=== PATIENT | female | born 1955 | race Caucasian/White ===

== ENCOUNTER 2018-02-06 18:33 | Emergency (ER) | payer BC ==
[2018-02-06] MEDS ORDERED: Promethazine HCl 25 MG/ML VIAL ONE (19:01)
[2018-02-06 19:19] LABS: Band 13 % (5-11); Lymphocytes 4 % (21-51); MDiff Complete? YES; Mean Corpuscular HGB CONC 34.1 g/dL (32.0-36.0); Mean Corpuscular Hemoglobin 29.8 pg (27.0-31.0); Mean Corpuscular Volume 87.4 fl (81.0-99.0); Mean Platelet Volume 8.4 fL (7.4-10.4); Monocytes 4 % (0-10); Neutrophil 73 % (42-75); PLT Morphology Comment Appears Adequate; Platelet Count 236 thou/uL (130-400); RBC Distribution Width 11.6 % (11.5-14.5); Reactive Lymphocytes 6 % (0-10); Red Blood Cell (RBC) Count 5.05 mill/uL (4.20-5.40); White Blood Cell (WBC) Count 7.8 thou/uL (4.8-10.8)
[2018-02-06 19:24] LABS: ALT (SGPT) 19 U/L (8-55); AST (SGOT) 21 U/L (5-34); Alkaline Phosphatase 72 U/L (40-150); Anion Gap 14 mmol/L (10-20); BUN (Urea Nitrogen) 14 mg/dL (9.8-20.1); Bilirubin, Total 0.8 mg/dL (0.2-1.2); Calc. Creatinine Clearance 0 mL/min (70-130); Calcium 9.1 mg/dL (7.8-10.44); Carbon Dioxide 22 mmol/L (23-31); Chloride 106 mmol/L (98-107); Estimated GFR-MDRD 62; Globulin 3.5 g/dL (2.4-3.5); Glucose 125 mg/dL (80-115); Potassium 3.9 mmol/L (3.5-5.1); Protein, Total 7.5 g/dL (6.0-8.3); Sodium 138 mmol/L (136-145)
[2018-02-06 19:28] LABS: CKMB 0.6 ng/mL (0-6.6); Troponin I Less than 0.010 ng/mL (< 0.028)
== END 2018-02-06 20:21 | disposition home or self-care (01) ==
LOC: SCSER 18:33
DX: R11.2 Nausea with vomiting, unspecified (principal); K21.9 Gastro-esophageal reflux disease without esophagitis; Z79.899 Other long term (current) drug therapy
CPT/HCPCS: 80053; 82553; 84484; 85025; 93005; 96365; J2550

== ENCOUNTER 2018-06-30 11:07 | Outpatient (CLI) | payer BC ==
--- NOTE | 2018-07-09 12:08 | MMO ---
BILATERAL SCREENING MAMMOGRAMS: Date: 06-30-18 This study is interpreted with the assistance of computer aided detection. Comparison: 03-12-17, 01-17-16, 12-17-14 FINDINGS: Scattered fibroglandular densities are seen in each breast. Vascular calcifications are seen bilatera lly. A few additional benign appearing calcifications are seen in each breast. There are scattered ti ny nodular densities seen within each breast of varying size and shape. Given multiplicity in bilater al findings, these nodules likely represent benign findings. No new dominant mass or suspicious group ing of microcalcifications are seen in either breast. IMPRESSION: BIRADS category 2 - benign findings. Routine annual mammographic screening is recommended. POS: TERESITA
== END 2018-06-30 11:08 | disposition home or self-care (01) ==
LOC: SCSMAMMO 11:07
PROVIDERS: ATTEND Family Medicine
DX: Z12.31 Encounter for screening mammogram for malignant neoplasm of breast (principal)
CPT/HCPCS: 77067

== ENCOUNTER 2019-09-07 11:14 | Outpatient (CLI) | payer BC ==
--- NOTE | 2019-09-07 13:43 | ULT ---
THYROID ULTRASOUND: Date: 09/07/2019 HISTORY: Thyroid nodule. FINDINGS: Real-time imaging of the right and left lobes of the gland were performed. The gland is diffusely het erogeneous. Right lobe measures 1.4 x 1.5 x 4.4 cm. Left lobe measures 1.0 x 1.1 x 3.7 cm. It is diff icult to define discrete nodules, although there are a couple areas of nodularity which are mildly hy perechoic which are in the 1.0 cm or less range. IMPRESSION: Diffusely heterogeneous gland with small bilateral thyroid nodules. Follow-up ultrasound in 1 year wo uld be recommended. POS: CARMINA
== END 2019-09-07 11:15 | disposition home or self-care (01) ==
LOC: SCSULT 11:14
PROVIDERS: ATTEND Family Medicine
DX: E04.2 Nontoxic multinodular goiter (principal)
CPT/HCPCS: 76536

== ENCOUNTER 2019-10-14 08:07 | Outpatient (CLI) | payer BC ==
--- NOTE | 2019-10-14 17:28 | CT ---
CT OF THE ABDOMEN AND PELVIS WITH AND WITHOUT IV CONTRAST INDICATION: UTI and hematuria TECHNIQUE: Noncontrast CT of the abdomen and pelvis was performed. Postcontrast images were obtained in the nephrographic phase and delayed phase. Axial and coronal reformatted images were constructed from the raw data. COMPARISON: None FINDINGS: ABDOMEN: Lung bases: There is a small sub-4 mm pulmonary nodule within the posterior right lower lobe on image 2 of series 3. Additional smaller sub-4 mm pulmonary nodule is seen within the left lower lobe on image 5 of series 2. Liver: No focal lesion. Gallbladder: Normal appearing. Pancreas: Normal. Adrenal glands: Normal. Spleen: Normal. Kidneys and ureters: Normal. No hydronephrosis. Vasculature: There are mild vascular calcifications seen involving the visualized vasculature. Lymph nodes:No lymphadenopathy. Free fluid in abdomen:No free fluid is evident. PELVIS: Small and large bowel: Colonic diverticulosis without evidence of active diverticulitis. Small bowel is of normal caliber. Appendix:Not seen Bladder: There is mild wall thickening with mild perivesicular fat stranding. No intraluminal mass is grossly evident. Rectal and perirectal soft tissues:Normal. Reproductive structures: Uterus and left adnexa are not visualized and presumed to be surgically abse nt. There is a bilobed cystic abnormality involving the right ovary measuring 5.5 x 4.4 x 6.3 cm. The lesion does contain some internal thin septations. Free fluid in pelvis: No free fluid is evident. Lymphadenopathy pelvis: No lymphadenopathy is evident. Osseous structures: No acute osseous abnormality. No destructive osteolytic or osteoblastic lesion i s identified. There is scattered degenerative and osteoarthritic changes. Soft tissues:Normal. IMPRESSION: 1. Complex cystic abnormality involving the right adnexa. Further evaluation with MR the pelvis with and without contrast is recommended for further characterization. Findings may reflect a cystadenoma or cystadenocarcinoma. 2. No focal renal lesion or gross urothelial lesion identified. No renal or ureteral calculus identif ied. No gross bladder lesion identified. There is mild suggested wall thickening and gallbladder with perivesicular fat stranding suspicious for cystitis.
== END 2019-10-14 08:08 | disposition home or self-care (01) ==
LOC: SCSCT 08:07
PROVIDERS: ATTEND Urology
DX: N32.89 Other specified disorders of bladder (principal); N39.41 Urge incontinence; N83.291 Other ovarian cyst, right side; Z87.440 Personal history of urinary (tract) infections; Z87.448 Personal history of other diseases of urinary system
CPT/HCPCS: 74178; 82565

== ENCOUNTER 2019-10-14 09:03 | Outpatient (CLI) | payer BC ==
--- NOTE | 2019-10-14 14:01 | CT ---
EXAM: CT right wrist without contrast HISTORY: Subluxation of the right extensor carpi ulnaris tendon; initial encounter TECHNIQUE: Multiple contiguous axial images were obtained and a CT of the right wrist without contras t. Sagittal and coronal reformats were performed. FINDINGS: There is no evidence of fracture or dislocation. No focal soft tissue swelling is seen. No focal mass or fluid collection is seen. The extensor tendons are normal along the dorsal aspect of the wrist. The extensor carpi ulnaris tend on is present within the groove in the distal ulna during this examination. The flexor tendons are intact along the volar aspect of the wrist and in the carpal tunnel. IMPRESSION: No significant abnormality identified.
--- NOTE | 2019-10-14 14:07 | CT ---
EXAM: CT left wrist without contrast HISTORY: Subluxation of the left extensor carpi ulnaris tendon; initial encounter TECHNIQUE: Multiple contiguous axial images were obtained and a CT of the right wrist without contras t. Sagittal and coronal reformats were performed. FINDINGS: There is no evidence of fracture or dislocation. No focal soft tissue swelling is seen. No focal mass or fluid collection is seen. The extensor tendons are normal along the dorsal aspect of the wrist. The extensor carpi ulnaris tend on is present within the groove in the distal ulna during this examination. The flexor tendons are intact along the volar aspect of the wrist and in the carpal tunnel. IMPRESSION: No significant abnormality identified.
== END 2019-10-14 09:04 | disposition home or self-care (01) ==
LOC: SCSCT 09:03
PROVIDERS: ATTEND Orthopaedic Surgery Hand Surgery
DX: S63.091A Other subluxation of right wrist and hand, initial encounter (principal); S63.092A Other subluxation of left wrist and hand, initial encounter

== ENCOUNTER 2020-02-09 07:49 | Day surgery (SDC) | payer BC, OTHER ==
[2020-02-05 12:02] VITALS: BMI 34.0
[2020-02-05 12:59] LABS: Hemoglobin 14.7 g/dL (12.0-16.0); Mean Corpuscular HGB CONC 34.7 g/dL (32.0-36.0); Mean Corpuscular Hemoglobin 31.3 pg (27.0-31.0); Mean Corpuscular Volume 90.2 fL (78.0-98.0); Mean Platelet Volume 8.2 fL (7.4-10.4); Platelet Count 267 thou/uL (130-400); RBC Distribution Width 12.2 % (11.5-14.5); Red Blood Cell (RBC) Count 4.71 mill/uL (4.20-5.40); White Blood Cell (WBC) Count 7.7 thou/uL (4.8-10.8)
[2020-02-05 18:12] LABS: SARS-CoV-2 MS2 Positive; SARS-CoV-2 N Gene Negative; SARS-CoV-2 S Gene Negative; SARS-CoV-2 orf1ab Negative
--- NOTE | 2020-02-09 08:03 | HP ---
HISTORY OF PRESENT ILLNESS: Ms. Anderson is a 64-year-old white female with history of hysterectomy with lap left salpingo-oophorectomy in the past for uterine fibroids. She also reported 3 prior sections. She was referred by Dr. Ford for right adnexal cyst seen on CT scan for workup of hematuria. This scan was performed on October 2019. Report is a bilobed cystic mass 5.5 x 4.4 x 6.3 cm with cystic changes. No solid component seen. Due to this, she was evaluated in my office on 12/07/2019. Transvaginal ultrasound showed her to have a stable cyst of the right adnexal structure measuring . There was no free fluid seen. The CA-125 was performed, which was normal at a value of 6. She is scheduled for laparoscopic RSO removal. PAST MEDICAL HISTORY: Gastroesophageal reflux and overactive bladder. CURRENT MEDICATIONS: 1. Pantoprazole 40 mg tablet daily. 2. Pazeo eyedrops as needed for allergic conjunctivitis. 3. Premarin 0.45 mg tablet daily. 4. Solifenacin 5 mg tablet daily for overactive bladder. PAST SURGICAL HISTORY: As noted, hysterectomy with LSO, cystoscopy of the bladder for bladder polyps, sections x3, and shoulder surgery on the right. FAMILY HISTORY: No history of ovarian cancer or breast cancer. PHYSICAL EXAMINATION: VITAL SIGNS: The patient's height is 5 feet 4 inches, weight 196, blood pressure 140/90, pulse regular at 81, respiratory rate of 18. BMI 33.6. HEENT: Within normal limits. CHEST: Clear to auscultation. HEART: Regular rate and rhythm. S1, S2 heart sounds. No murmurs, rubs, or gallops. ABDOMEN: Soft, nontender, nondistended with no palpable masses. PELVIC: Vulva and vagina had no lesions. Vaginal cuff was intact. She has some fullness in the right adnexal region, nontender. ASSESSMENT: This is a 64-year-old white female with prior hysterectomy, left salpingo-oophorectomy with CT scan and pelvic ultrasound showing a cystic cyst on the right adnexal region. Normal CA-125 and value of 6. Suspect this could be most likely a hydrosalpinx from postsurgical changes from her hysterectomy. PLAN: Plan is to proceed with laparoscopic right salpingo-oophorectomy. Scheduled for 02/09/2020. Risks and benefits of the procedure have been discussed in detail, she is set for surgery. Job ID: [id number]
[2020-02-09] MEDS ORDERED: Gabapentin 300 MG CAP ONE (08:22)
[2020-02-09] MEDS ORDERED: CeleCOXIB 100 MG CAP ONE (08:22)
[2020-02-09] MEDS ORDERED: Famotidine 20 MG TAB ONE (08:22)
[2020-02-09] MEDS ORDERED: Famotidine/PF 20 mg/2ml Vial ONE (08:23)
[2020-02-09] MEDS ORDERED: Midazolam HCl 2 mg/2 ml Vial ONE (08:49)
[2020-02-09] MEDS ORDERED: Dexamethasone 20 MG/5 ML VIAL ONE (09:24)
[2020-02-09] MEDS ORDERED: Ondansetron PF 4 MG/2 ML Vial ONE ×2 (09:24→12:22)
[2020-02-09] MEDS ORDERED: Glycopyrrolate 0.2 MG/ML 5 ML SYRINGE ONE (09:24)
[2020-02-09] MEDS ORDERED: Rocuronium Bromide 10 MG/ML (10ML VIAL) ONE (09:24)
[2020-02-09] MEDS ORDERED: Succinylcholine Chloride 20 MG/ML 10 ml SYRINGE FS ONE (09:24)
[2020-02-09] MEDS ORDERED: Lidocaine 1% PF 5 ML VIAL ONE (09:24)
[2020-02-09] MEDS ORDERED: PROPOFOL 200 MG/20 ML VIAL ONE (09:24)
[2020-02-09] MEDS ORDERED: Fentanyl 100 MCG/2 ML VIAL ONE (09:52)
[2020-02-09] MEDS ORDERED: SUGAMMADEX SODIUM 200 MG/2 ML VIAL ONE (09:52)
[2020-02-09] MEDS ORDERED: Lidocaine 1% w/Epinephrine 1:100K 20 ML VIAL ONE (10:09)
[2020-02-09] MEDS ORDERED: Bupivacaine PF 0.5% 30 ML VIAL ONE (10:09)
--- NOTE | 2020-02-09 14:57 | OP ---
DATE OF PROCEDURE: 02/09/2020 PREOPERATIVE DIAGNOSES: 1. A 64-year-old white female with persistent 5 cm right adnexal cyst. 2. Prior hysterectomy and left salpingo-oophorectomy history. POSTOPERATIVE DIAGNOSES: 1. A 64-year-old white female with persistent 5 cm right adnexal cyst. 2. Prior hysterectomy and left salpingo-oophorectomy history. 3. Right hydrosalpinx of the tube. PROCEDURE PERFORMED: Laparoscopic right salpingo-oophorectomy. NURSING UNIT COORDINATOR SURGEON: Sharri Serrano PA-C. ANESTHESIA: General endotracheal. ESTIMATED BLOOD LOSS: Less than 10 mL. COMPLICATIONS: None. COUNTS: Correct x2. ANTIBIOTICS: 2 g Ancef on-call to OR. PATHOLOGY: Fallopian tube, hydrosalpinx with ovary. FINDINGS: 1. The patient was status post hysterectomy and left salpingo-oophorectomy. 2. She has omental adhesions in mid anterior abdominal wall and left anterior abdominal wall from prior hysterectomy. 3. Right adnexal structure noted tubular hydrosalpinx, some adhesions to the pelvic sidewall status post lysis of adhesion, excision of the tube, and a postmenopausal appearing ovary. DISPOSITION: To recovery room and then plan for discharge home. DESCRIPTION OF PROCEDURE: The patient previously received informed consent in regard to surgery. She was taken back to the operating room, where she received a general endotracheal anesthetic agent without complications. She was then placed in dorsal lithotomy position with Shekhar stirrups and prepped and draped in usual sterile fashion. In-and-out catheterization of the bladder was performed. A moistened sponge stick was placed in the vaginal vault. Attention was then turned to the abdomen, where perspective trocar sites were infiltrated with 0.5% Marcaine with epinephrine. A supraumbilical incision was made vertically approximately 8 mm in size. Veress needle was entered into peritoneal cavity and the patient's pressure was noted to be less than 5 mm. Abdomen was insufflated with the patient's pressure of 15, approximately 4.5 L of carbon dioxide gas. An 8 mm trocar was then placed through the abdominal wall. A 5 mm laparoscope was introduced through the trocar sleeve confirming proper entry. There were adhesions omental in nature in the anterior abdominal wall on the left side of the anterior abdominal wall. No evidence of any entry in the bowel was noted with the supraumbilical trocar. I was able to get around the adhesions to the patient's right anterior abdominal wall, which was free of adhesions, and we were able to locate the left fallopian tube and ovary with the previously mentioned findings. Building Associate port was placed, 5 mm size in the right lower quadrant side and then one just right of the midline in the lower abdomen under direct visualization. I was then able to use the LigaSure device through just slight to the midline port. While my title i instructional assistant grabbed the adnexal cyst with the atraumatic graspers, pulling this away from the pelvic sidewall. I dissected the filmy adhesions and isolated the IP ligament and freed it from the pelvic sidewall. The iliac vessels were just beneath this and the course of the ureter was visualized. It was well away from the operative site. I then transected the IP ligament with the LigaSure device. I continued to dissect the thin filmy adhesions of the hydrosalpinx away from the pelvic sidewall and freed this up along with a small menopausal appearing ovary. Once this was all freed up, the avascular pedicle remained. This was coagulated and transected. We then irrigated the pelvis. Hemostasis was assured. We then put the camera in the right side in the midline, right suprapubic port, and then, a 5 mm bag was brought through the supraumbilical trocar. My title i instructional assistant held onto the specimen and we placed it in the endobag. Specimens removed through the supraumbilical fascial defect with the endobag intact. We then used the GraNee needle closure kit to close the fascial defect in the supraumbilical region under direct visualization with 2-0 Vicryl sutures. The excess carbon dioxide gas was then released from the abdomen and the other trocar sites were closed with 4-0 Monocryl and Dermabond. Hemostasis was assured. The patient was awakened from anesthesia and transferred to recovery room in stable condition. Job ID: [id number]
== END 2020-02-09 14:20 | disposition home or self-care (01) ==
LOC: SDC 07:49
PROVIDERS: ATTEND Obstetrics & Gynecology
PROC: 0UT04ZZ Resection of Right Ovary, Percutaneous Endoscopic Approach (ICD-10-PCS; principal; 2020-02-09)
PROC: 0UT54ZZ Resection of Right Fallopian Tube, Percutaneous Endoscopic Approach (ICD-10-PCS; principal; 2020-02-09)
DX: D27.0 Benign neoplasm of right ovary (principal); N70.11 Chronic salpingitis; N32.81 Overactive bladder; K21.9 Gastro-esophageal reflux disease without esophagitis; Z79.818 Long term (current) use of other agents affecting estrogen receptors and estrogen levels; Z79.899 Other long term (current) drug therapy; Z90.721 Acquired absence of ovaries, unilateral; Z90.79 Acquired absence of other genital organ(s); Z90.710 Acquired absence of both cervix and uterus
CPT/HCPCS: 36415; 85027; 86850; 86900; 86901; 87635; 88305; 88307; J0690; J1100; J2001; J2250; J2405; J2704; J3010; S0020; S0028; U0003

== ENCOUNTER 2020-07-08 07:56 | Outpatient (CLI) | payer BC ==
--- NOTE | 2020-07-08 10:18 | CT ---
CT ANGIO ABDOMEN PERFORMED WITH IV CONTRAST ENHANCEMENT WITH 3D RECONSTRUCTIONS: Date: 07/08/2020 HISTORY: Uncontrolled hypertension. FINDINGS: The lung bases are clear of any infiltrative process. The liver, spleen, pancreas, and gallbladder regions appear unremarkable. Right and left adrenal glands are normal in size and appearance. The right and left kidneys are poli l in size. No obstruction or mass. There is no significant periaortic or mesenteric adenopathy. Angiographic portion of the study yielded a good examination. The abdominal aorta is normal in calibe r. There is minimal atherosclerotic change. There is no significant narrowing to the origin of the ce liac or superior mesenteric arteries and there is a patent MICHELLE. There is a single right renal artery present without stenosis. Two left renal arteries also show no s tenosis. IMPRESSION: No evidence of renal artery stenosis. POS: MARGI
[2020-07-08] MEDS ORDERED: Iopamidol-370 76% 500 ML 1 ML ONE (13:55)
== END 2020-07-08 07:57 | disposition home or self-care (01) ==
LOC: BICCT 07:56
PROVIDERS: ATTEND Family Medicine
DX: I15.0 Renovascular hypertension (principal)
CPT/HCPCS: 74175; 82565; Q9967

== ENCOUNTER 2021-08-22 08:38 | Outpatient (CLI) | payer MEDICARE, BC | END 2021-08-22 08:39 | disposition home or self-care (01) | LOC: SCSMRI 08:38 | PROVIDERS: ATTEND Anesthesiology Pain Medicine | DX: M51.16 Intervertebral disc disorders with radiculopathy, lumbar region (principal); M51.17 Intervertebral disc disorders with radiculopathy, lumbosacral region | CPT/HCPCS: 72148 ==

== ENCOUNTER 2024-05-21 09:57 | Emergency (ER) | payer MEDICARE ==
[2024-05-21 10:36] LABS: #Basophils 0.04 10x3/uL (0.0-0.2); %Basophils 0.4 % (0.0-1.0); %Lymphocytes 17.9 % (21.0-51.0); %Monocytes 7.6 % (0.0-10.0); %Neutrophils 68.6 % (42.0-75.0); Hematocrit 41.9 % (36.0-47.0); Hemoglobin 14.3 g/dL (12.0-16.0); Mean Corpuscular HGB CONC 34.1 g/dL (32.0-36.0); Mean Corpuscular Hemoglobin 30.4 pg (27.0-31.0); Mean Platelet Volume 9.9 fL (7.4-10.4); Platelet Count 286 10x3/uL (130-400); RBC Distribution Width 12.7 % (11.5-14.5); Red Blood Cell (RBC) Count 4.71 mill/uL (4.20-5.40)
[2024-05-21 10:55] LABS: ALT (SGPT) 26 U/L (8-55); AST (SGOT) 28 U/L (5-34); Albumin 3.4 g/dL (3.4-4.8); Alkaline Phosphatase 103 U/L (40-110); Anion Gap 15 mmol/L (10-20); BUN (Urea Nitrogen) 14 mg/dL (9.8-20.1); Bilirubin, Total 1.1 mg/dL (0.2-1.2); Calc. Creatinine Clearance 0 mL/min (70-130); Calcium 9.6 mg/dL (7.8-10.44); Carbon Dioxide 25 mmol/L (23-31); Chloride 100 mmol/L (98-107); Estimated GFR 47; Globulin 4.4 g/dL (2.4-3.5); Glucose 116 mg/dL (80-115); Lipase 32 U/L (8-78); Potassium 3.5 mmol/L (3.5-5.1); Protein, Total 7.8 g/dL (5.8-8.1); Sodium 136 mmol/L (136-145)
[2024-05-21 11:01] LABS: Troponin I Less than 0.010 ng/mL (< 0.028)
[2024-05-21 11:27] LABS: Influenza A by NAA Not Detected (NotDetected); Influenza B by NAA Not Detected (NotDetected); SARS-CoV-2 NAA Rapid Test Not Detected (NotDetected)
[2024-05-21] MEDS ORDERED: Ondansetron PF 4 MG/2 ML Vial ONE (11:35)
[2024-05-21 12:02] LABS: Bacteria/HPF None Seen HPF (None Seen); Bilirubin Negative (Negative); Blood, Urine Negative (Negative); CAUTI Indications for Culture Acute Hematuria; Clarity Clear (Clear); Glucose, Urine (Dipstick) Normal (Negative); Ketone, Urine Negative (Negative); Leukocyte Negative Leu/uL (Negative); Nitrite Negative (Negative); Protein, Urine (Dipstick) Negative (Neg-Trace); RBC/HPF 0-3 HPF (0-3); Specific Gravity, Urine 1.029 (1.002-1.036); Squamous Epithelial 0-3 HPF (0-3); Urobilinogen Normal mg/dL (Less than 2); WBC/HPF None Seen HPF (0-3); pH, Urine 7.5 (5.0-9.0)
[2024-05-21 12:04] LABS: Urine Culture Reflex No No
== END 2024-05-21 13:00 | disposition home or self-care (01) ==
LOC: ERS 09:57
DX: K91.89 Other postprocedural complications and disorders of digestive system (principal); R50.9 Fever, unspecified; R42 Dizziness and giddiness; R10.9 Unspecified abdominal pain; I10 Essential (primary) hypertension; K21.9 Gastro-esophageal reflux disease without esophagitis; Z90.49 Acquired absence of other specified parts of digestive tract; Z79.899 Other long term (current) drug therapy
CPT/HCPCS: 0240U; 71045; 74177; 80053; 81001; 83690; 84484; 85025; 93005; J2405; 96374